=== PATIENT | male | born 1985 | race African-American/Black ===

== ENCOUNTER 2017-01-03 21:35 | Emergency (ER) | payer SELFPAY ==
[~2017-01-03] VITALS: Ht 185.4 cm; Wt 70.0 kg
[2017-01-03 21:36] VITALS: BP 135/75; PULSE 75; RESP 20; TEMP 98.6; O2SAT 100
[2017-01-03 21:44] VITALS: BP 123/77; PULSE 87; RESP 30; TEMP 98.9; O2SAT 99
[2017-01-03 22:15] VITALS: RESP 22; O2SAT 100
[2017-01-03] MEDS ORDERED: SODIUM CHLOR 0.9% 1000 ML INJ 1,000 ML IV ONE (22:15)
[2017-01-03] MEDS ORDERED: KETOROLAC TROMETHAMINE 30 MG/ML (IVP) VIAL IV PUSH ONE (22:15)
[2017-01-03] MEDS ORDERED: DIAZEPAM 5 MG TAB PO ONE (22:15)
[2017-01-03] MEDS ORDERED: SODIUM CHLORIDE 0.9% FLUSH 10 ML FLUSH IVF PRN (22:15)
[2017-01-03 22:39] LABS: AUTOMATED NEUTROPHIL # 3.2 TH/MM3 (1.8-7.7); BASOPHIL % 0.5 % (0.0-2.0); EOSINOPHIL % 0.6 % (0.0-4.0); HEMATOCRIT 44.4 % (39.0-51.0); HEMO FLAGS DIFF FINAL; LYMPH % 44.2 % (9.0-44.0); LYMPHOCYTE # 3.1 TH/MM3 (1.0-4.8); MEAN CELL VOLUME 83.4 FL (80.0-100.0); MEAN CORPUSCULAR HEMOGLOBIN 28.1 PG (27.0-34.0); MEAN CORPUSCULAR HGB CONC 33.7 % (32.0-36.0); MONO % 8.8 % (0.0-8.0); NEUT % 45.9 % (16.0-70.0); PLATELET COUNT 234 TH/MM3 (150-450); RED BLOOD COUNT 5.32 MIL/MM3 (4.50-5.90); RED CELL DISTRIBUTION WIDTH 14.9 % (11.6-17.2)
[2017-01-03 22:47] LABS: AMPHETAMINE, URINE NEG (NEG); BARBITURATES, URINE NEG (NEG); COCAINE, URINE NEG (NEG)
--- NOTE | 2017-01-03 22:50 | RADRPT ---
EXAM DATE/TIME: 01/03/2017 22:38 [facility] COMPARISON: CHEST SINGLE AP, October 18, 2015, 21:22. INDICATIONS : Chest pain. MEDICAL HISTORY : None. SURGICAL HISTORY : None. ENCOUNTER: Initial ACUITY: 1 day PAIN SCORE: 6/10 LOCATION: Bilateral chest FINDINGS: A single view of the chest demonstrates the lungs to be symmetrically aerated without evidence of mas s, infiltrate or effusion. The cardiomediastinal contours are unremarkable. Osseous structures are intact. CONCLUSION: 1. No acute cardiopulmonary disease. Mode Olivo MD on January 03, 2017 at 22:48 Board Certified Radiologist. This report was verified electronically.
--- NOTE | 2017-01-03 22:52 | RADRPT ---
EXAM DATE/TIME: 01/03/2017 22:41 [facility] COMPARISON: No previous studies available for comparison. INDICATIONS : Chronic low back pain. MEDICAL HISTORY : None. SURGICAL HISTORY : None. ENCOUNTER: Initial ACUITY: 1 day PAIN SCORE: 6/10 LOCATION: Bilateral Paraspinal FINDINGS: There is reversal of the normal lumbar lordosis. There is no evidence of acute fracture. Bony mineral ization is normal. No spondylolysis or spondylolisthesis is present. No subluxation is seen. There is lumbarization of S1 CONCLUSION: 1. Reversal of lumbar lordosis otherwise negative Mode Olivo MD on January 03, 2017 at 22:49 Board Certified Radiologist. This report was verified electronically.
[2017-01-03 22:59] LABS: APTT (PATIENT) 27.7 SEC (24.3-30.1); PROTHROMBIN TIME - PATIENT 10.5 SEC (9.8-11.6)
[2017-01-03 23:00] LABS: ANION GAP 15 MEQ/L (5-15); AST (GOT) 26 U/L (15-37); BICARBONATE 22.6 MEQ/L (21.0-32.0); BLOOD UREA NITROGEN 11 MG/DL (7-18); CHLORIDE 103 MEQ/L (98-107); GLOMERULAR FILTRATION RATE 108 ML/MIN (>89); MAGNESIUM 2.3 MG/DL (1.5-2.5); POTASSIUM 3.6 MEQ/L (3.5-5.1); SODIUM (NA) 141 MEQ/L (136-145)
[2017-01-03 23:05] LABS: ALKALINE PHOSPHATASE 89 U/L (45-117); ALT (GPT) 36 U/L (12-78); CREATINE KINASE 299 U/L (39-308); TOTAL BILIRUBIN ADULT 0.5 MG/DL (0.2-1.0)
[2017-01-03 23:17] LABS: CKMB 1.2 NG/ML (0.5-3.6)
[2017-01-04] MEDS ORDERED: DIAZ5 PO (00:21)
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
[2017-01-04 00:37] VITALS: BP 115/70; PULSE 62; RESP 20; O2SAT 99
--- NOTE | 2017-01-04 13:37 | EKG ---
Date Performed: 01/03/2017 Time Performed: 21:45:15 PTAGE: 31 years EKG: Sinus rhythm VOLTAGE CRITERIA FOR LVH ABNORMAL ECG Compared to prior tracing no significant change PREVIOUS TRACING : 10/18/2015 20.58 DOCTOR: Oliver Daimond Interpretating Date/Time 01/04/2017 13:36:33
== END 2017-01-04 01:46 | disposition home or self-care (01) ==
LOC: NEPE 21:35
DX: T88.7XXA Unspecified adverse effect of drug or medicament, initial encounter (principal); F41.9 Anxiety disorder, unspecified; R07.9 Chest pain, unspecified; F17.210 Nicotine dependence, cigarettes, uncomplicated; F12.90 Cannabis use, unspecified, uncomplicated; R94.31 Abnormal electrocardiogram [ECG] [EKG]
CPT/HCPCS: 71010; 72110; 80053; 80307; 82550; 82552; 83735; 84484; 85025; 85610; 85730; 93005; 96374; 96375; 99283; J1885; J7030